=== PATIENT | female | born 1975 | race Caucasian/White ===

== ENCOUNTER 2019-10-06 10:23 | Emergency (ER) | payer MEDICAID ==
[~2019-10-06] VITALS: Ht 167.6 cm; Wt 118.2 kg
[2019-10-06 10:31] VITALS: Ht 167.6 cm; Wt 118.2 kg
[2019-10-06] MEDS ORDERED: BUPROPION HCL75 MG (10:31)
[2019-10-06 11:28] LABS: BASOPHILS 0.4 % (0-2); EOSINOPHILS 1.2 % (0-7); HEMATOCRIT 39.6 % (36.0-48.0); HEMOGLOBIN 13.6 g/dL (12-16); IMMATURE GRANULOCYTES 0.5 % (0-5); LYMPHOCYTES 27.6 % (15-50); MCH 31.1 pg (26.0-34.0); MCHC 34.3 g/dL (31.0-37.0); MCV 90.4 fL (80.0-100.0); MEAN PLATELET VOLUME 8.9 fL (7.4-10.4); MONOCYTES 6.1 % (2-11); NEUTROPHILS 64.2 % (40-80); PLATELET COUNT 314 10x3/uL (130-400); RBC 4.38 10x6/uL (4.00-5.40); RDW 12.1 % (11.5-14.5); WBC 8.2 10x3/uL (4.8-10.8)
[2019-10-06 11:43] LABS: CALC OSMOLALITY 275 mosm/kg (275-300); CALCIUM 8.7 mg/dL (8.5-10.1); CARBON DIOXIDE 26.7 mmol/L (21.0-32.0); CHLORIDE - SERUM 101 mmol/L (98-107); CREATININE - SERUM 0.8 mg/dL (0.6-1.3); GLUCOSE 94 mg/dL (74-106); POTASSIUM - SERUM 3.9 mmol/L (3.5-5.1); SODIUM 137 mmol/L (136-145); UREA NITROGEN 17 mg/dL (7-18); eGFR NON AFRICAN AMERICAN 82 mL/min (90-120)
[2019-10-06 11:49] LABS: ALBUMIN 3.5 g/dL (3.4-5.0); ALKALINE PHOSPHATASE 101 U/L (30-120); ALT (SGPT) 49 U/L (10-68); BILIRUBIN - TOTAL 0.33 mg/dL (0.2-1.3); PROTEIN - SERUM 7.4 g/dL (6.4-8.2)
[2019-10-06] MEDS ORDERED: DECADRON4 MG PO (12:31)
[2019-10-06] MEDS ORDERED: ALBUTEROL SULF8.5 GM INH (12:31)
[2019-10-06 13:05] VITALS: BP 102/62
== END 2019-10-06 13:08 | disposition home or self-care (01) ==
LOC: D.ER 10:23
PROVIDERS: Family Medicine
DX: U07.1 COVID-19 (principal); R06.00 Dyspnea, unspecified; R05 Cough